=== PATIENT | male | born 1960 | race Caucasian/White ===

== ENCOUNTER 2016-10-30 10:33 | Emergency (ER) | payer OTHER ==
[~2016-10-30] VITALS: Ht 167.6 cm; Wt 96.6 kg
[2016-10-30 11:21] LABS: BASO % 0.5 % (0.0-1.0); EOS # 0.2 K/mm3 (0.0-0.50); EOS % 3.5 % (0.0-3.0); LARGE UNSTAINED CELL # 0.1 K/mm3 (0.0-0.4); LARGE UNSTAINED CELL % 1.1 % (0.0-4.0); LYMPH # 0.9 K/mm3 (1.5-4.5); LYMPH % 11.4 % (24.0-44.0); MEAN CORPUSCULAR HEMOGLOBIN 31.2 pg (27.0-33.0); MONO # 0.4 K/mm3 (0.0-0.8); MONO % 5.6 % (0.0-5.0); NEUTROPHILS # 5.4 K/mm3 (1.8-7.7); NEUTROPHILS % 77.9 % (36.0-66.0); PLATELET COUNT, AUTOMATED 186 k/mm3 (150-450); WHITE BLOOD COUNT 6.9 K/mm3 (4.0-10.0)
[2016-10-30] MEDS ORDERED: ACETAMINOPHEN TAB 650MG DOSE (2X325MG) PO ONE (11:30)
[2016-10-30] MEDS ORDERED: CHLO125TA PO (11:34)
[2016-10-30] MEDS ORDERED: BETA10TA2 PO (11:34)
[2016-10-30] MEDS ORDERED: ASPI81TA7 PO (11:34)
[2016-10-30] MEDS ORDERED: AMLO10TA2 PO (11:34)
[2016-10-30] MEDS ORDERED: TELM1TAB2 PO (11:34)
[2016-10-30] MEDS ORDERED: LEXA1TAB2 PO (11:34)
[2016-10-30] MEDS ORDERED: CHLORTHALIDONE 12.5MG PER 1/2 TABLET PO ONE (11:45)
--- NOTE | 2016-10-30 12:00 | REP ---
CT Head without contrast HISTORY: Headache COMPARISON: 03/08/2013 Areas of decreased attenuation are present in the periventricular and subcortical white matter. This represents small-vessel ischemic disease. There is no intraparenchymal hemorrhage, acute infarct, mass or midline shift. The ventricular system and cortical sulci are dilated consistent with minimal volume loss. There is no extra cerebral collection. There is no fracture. The visualized sinuses are clear. IMPRESSION: 1. Small vessel ischemic disease. 2. Minimal volume loss. Signed by Ron Sherwood MD 10/30/2016 11:51 A
[2016-10-30 12:13] LABS: ALBUMIN 4.1 GM/DL (3.2-5.2); ALBUMIN/GLOBULIN RATIO 1.32 (1.00-1.93); ALKALINE PHOSPHATASE 101 U/L (45-117); ALT/SGPT 71 U/L (12-78); ANION GAP 7 MEQ/L (8-16); AST/SGOT 36 U/L (15-37); BILIRUBIN,DIRECT 0.2 MG/DL (0.0-0.2); BILIRUBIN,TOTAL 0.8 MG/DL (0.2-1.0); BLOOD UREA NITROGEN 12 MG/DL (7-18); CARBON DIOXIDE LEVEL 29 MEQ/L (21-32); CHLORIDE LEVEL 101 MEQ/L (98-107); CREATININE FOR GFR 1.18 MG/DL (0.70-1.30); FREE T4 0.95 NG/DL (0.76-1.46); GLOMERULAR FILTRATION RATE > 60.0 (>56); GLUCOSE, FASTING 113 MG/DL (70-105); POTASSIUM SERUM 3.9 MEQ/L (3.5-5.1); SODIUM LEVEL 137 MEQ/L (136-145); TOTAL PROTEIN 7.2 GM/DL (6.4-8.2)
--- NOTE | 2016-10-30 12:21 | REP ---
Portable chest, single PA view: Comparison is the PA and lateral chest of 06/30/2015. The lung bruno are clear. The cardiac size is normal. The delaney, mediastinum, and bony thorax are unremarkable. Impression: Negative portable chest. There is no interval change Signed by Armand Steinberg MD 10/30/2016 12:13 P
[2016-10-30 12:58] VITALS: BP 161/95
--- NOTE | 2016-10-31 08:17 | ECGEPIP ---
Stationary ECG Study [facility] - ED Test Date: 2016-10-30 Pat Name: SHARIFA RICE Department: Room: - Gender: M [employer]: sb : 1960 Requested By: Jeremiah Pierre Order Number: [id number] Reading MD: Elizabeth Castillo Measurements Intervals Cylinder Rate: 61 P: 34 WY: 177 QRS: -11 QRSD: 94 T: 73 QT: 394 QTc: 397 Interpretive Statements SINUS RHYTHM LEFT VENTRICULAR HYPERTROPHY AND ST-T CHANGE LESS PRONOUNCED ST CHANGES COMPARED 06/30/15 Electronically Signed On 10-31-2016 8:17:09 EDT by Elizabeth Castillo
== END 2016-10-30 13:21 | disposition home or self-care (01) ==
LOC: M ED 11:39
DX: I10 Essential (primary) hypertension (principal); R51 Headache; I67.9 Cerebrovascular disease, unspecified; Z79.82 Long term (current) use of aspirin; Z79.899 Other long term (current) drug therapy

== ENCOUNTER → 2018-01-02 | Outpatient (REF) | payer OTHER ==
[2018-01-08 00:08] LABS: ALDOSTERONE 7.5 ng/dL (0.0-30.0)
[2018-01-08 10:13] LABS: RENIN LEVEL 0.316 ng/mL/hr (0.167-5.380)
== END ==
LOC: M LAB REF 16:51
DX: E87.6 Hypokalemia (principal)

== ENCOUNTER → 2018-09-25 | Outpatient (REF) | payer OTHER ==
[~2018-09-25] MED LIST: AMLO10TA5 PO; ASPI1TAB15 PO; BETA10TA2 PO; CHLO125TA PO; LEXA1TAB2 PO; TELM1TAB37 PO
[2018-09-30 00:06] LABS: RENIN LEVEL 1.463 ng/mL/hr (0.167-5.380)
== END ==
LOC: M LAB REF 16:17
PROVIDERS: ATTEND Internal Medicine
DX: E87.6 Hypokalemia (principal)

== ENCOUNTER 2019-04-12 09:09 | Day surgery (SDC) | payer OTHER ==
[~2019-04-12] VITALS: Ht 167.6 cm; Wt 94.8 kg
[~2019-04-12 09:09] MED LIST changes: +ATOR1TAB21 PO; +NS 1,000 ML IV ONE; +SPIR50TA4 PO
[2019-04-12] MEDS ORDERED: LIDOCAINE 2% INJ 100 MG/5 ML SDV (FOR ANES.) As Ordered ONE (09:47)
[2019-04-12] MEDS ORDERED: PROPOFOL 200 MG/20 ML VIAL As Ordered ONE (09:47)
--- NOTE | 2019-04-12 10:36 | ROOR ---
Patient Name: Carrillo Garcia Procedure Date: 04/12/2019 9:57 AM Date of : 1960 Age: 58 Room: [facility] Gender: Male Note Status: Finalized Procedure: Total Colonoscopy to Cecum + Cold Snare Polypectomy + Hemoclips Indications: Screening for colorectal malignant neoplasm Providers: Samuel Mederos MD Referring MD: Rupal Bryant DO Requesting Provider: Medicines: Monitored Anesthesia Care Complications: No immediate complications. Procedure: Pre-Anesthesia Assessment: - The heart rate, respiratory rate, oxygen saturations, blood pressure, adequacy of pulmonary ventilation, and response to care were monitored throughout the procedure. The Colonoscope was introduced through the anus and advanced to the cecum, identified by appendiceal orifice and ileocecal valve. The colonoscopy was performed without difficulty. The patient tolerated the procedure well. The quality of the bowel preparation was excellent. Findings: The perianal and digital rectal examinations were normal. Non-bleeding internal hemorrhoids were found during retroflexion. The hemorrhoids were small and Grade I (internal hemorrhoids that do not prolapse). Multiple small and large-mouthed diverticula were found in the recto-sigmoid colon, sigmoid colon and descending colon. A small polyp was found in the transverse colon. The polyp was sessile. The polyp was removed with a cold snare. Resection and retrieval were complete. A large polyp was found in the cecum. The polyp was sessile. The polyp was removed with a cold snare. Resection and retrieval were complete. To prevent bleeding after the polypectomy, two hemostatic clips were successfully placed (MR conditional). There was no bleeding at the end of the procedure. A diminutive polyp was found in the ascending colon. The polyp was sessile. The polyp was removed with a jumbo cold forceps. Resection and retrieval were complete. The exam was otherwise without abnormality on direct and retroflexion views. Impression: - Non-bleeding internal hemorrhoids. - Diverticulosis in the recto-sigmoid colon, in the sigmoid colon and in the descending colon. - One small polyp in the transverse colon, removed with a cold snare. Resected and retrieved. - One large polyp in the cecum, removed with a cold snare. Resected and retrieved. Clips (MR conditional) were placed. - One diminutive polyp in the ascending colon, removed with a jumbo cold forceps. Resected and retrieved. - The examination was otherwise normal on direct and retroflexion views. - The exam was otherwise normal to the cecum. Recommendation: - Patient has a contact number available for emergencies. The signs and symptoms of potential delayed complications were discussed with the patient. Return to normal activities tomorrow. Written discharge instructions were provided to the patient. - High fiber diet. - Discharge patient to home. - Continue present medications. - Await pathology results. - Telephone GI clinic for pathology results in 1 week. - Return to referring physician. - Repeat colonoscopy in 3 years for surveillance based on pathology results. - The findings and recommendations were discussed with the patient's family. Samuel Mederos MD Samuel Mederos MD 04/12/2019 10:36:45 AM Electronically signed by Smauel Mederos MD Number of Addenda: 0 Note Initiated On: 04/12/2019 9:57 AM Estimated Blood Loss: Estimated blood loss: none.
[2019-04-12 10:50] VITALS: BP 141/86
== END 2019-04-12 11:00 | disposition home or self-care (01) ==
LOC: M OPP 09:09
PROVIDERS: ATTEND Internal Medicine Gastroenterology
DX: Z12.11 Encounter for screening for malignant neoplasm of colon (principal); K64.0 First degree hemorrhoids; D12.3 Benign neoplasm of transverse colon; D12.0 Benign neoplasm of cecum; D12.2 Benign neoplasm of ascending colon; K57.30 Diverticulosis of large intestine without perforation or abscess without bleeding; F17.220 Nicotine dependence, chewing tobacco, uncomplicated; Z79.899 Other long term (current) drug therapy

== ENCOUNTER → 2021-01-22 | Outpatient (CLI) | payer OTHER ==
[~2021-01-22] MED LIST changes: -AMLO10TA5 PO; +AMLO1TAB25 PO; +ASPI-546 PO; -ASPI1TAB15 PO; -NS 1,000 ML IV ONE
--- NOTE | 2021-01-24 04:40 | REP ---
INDICATION: LEFT HIP AND FEMUR PAIN WITH ROM COMPARISON: None. TECHNIQUE: AP and frog-lateral views of the left hip FINDINGS: Significant advanced presumed osteoarthritic degenerative changes include periarticular heterogeneity, subchondral cystic changes, complete joint space obliteration and associated flattening/remodeling of the femoral head and acetabulum. No evidence for acute fracture. IMPRESSION: Significant advanced osteoarthritic degenerative changes. <Electronically signed by Terrance Lazar > 01/24/21 [id number]
--- NOTE | 2021-01-24 04:56 | REP ---
INDICATION: LEFT HIP AND FEMUR PAIN WITH ROM COMPARISON: None. TECHNIQUE: AP and frog-lateral views of the left femur. FINDINGS: Visualized portions of the femur from the mid shaft to the knee appear age-appropriate and without evidence for acute or healed injury. Knee joint is relatively intact and normal. IMPRESSION: Age-appropriate visualized portions of the femur. <Electronically signed by Terrance Lazar > 01/24/21 0453
== END ==
LOC: M RAD 14:12
PROVIDERS: ATTEND Internal Medicine
DX: M16.12 Unilateral primary osteoarthritis, left hip (principal)

== ENCOUNTER 2021-04-23 08:25 | Outpatient (RCR) | payer OTHER | END 2021-04-24 | LOC: M PT 08:25 | PROVIDERS: ATTEND Orthopaedic Surgery | DX: M25.552 Pain in left hip (principal) ==

== ENCOUNTER 2021-05-24 08:30 | Outpatient (RCR) | payer OTHER | END 2021-05-25 | LOC: M PT 08:30 | PROVIDERS: ATTEND Orthopaedic Surgery | DX: Z96.642 Presence of left artificial hip joint (principal) ==

== ENCOUNTER 2021-06-19 08:27 | Outpatient (RCR) | payer OTHER | END 2021-06-25 | LOC: M PT 08:27 | PROVIDERS: ATTEND Orthopaedic Surgery | DX: Z96.642 Presence of left artificial hip joint (principal) ==

== ENCOUNTER 2022-04-16 12:32 | Outpatient (RCR) | payer OTHER | END 2022-04-24 | LOC: M PT 12:32 | PROVIDERS: ATTEND Physician Assistant Surgical | DX: M54.31 Sciatica, right side (principal) ==

== ENCOUNTER 2022-05-22 07:00 | Outpatient (RCR) | payer OTHER | END 2022-05-25 | LOC: M PT 07:00 | PROVIDERS: ATTEND Physician Assistant Surgical | DX: M54.31 Sciatica, right side (principal) ==

== ENCOUNTER 2022-11-13 08:54 | Day surgery (SDC) | payer OTHER ==
[~2022-11-13] VITALS: Ht 167.6 cm; Wt 93.0 kg
[~2022-11-13 08:54] MED LIST changes: +GABA-282 PO; +NS 1,000 ML IV ONE
[2022-11-13] MEDS ORDERED: propofoL 200 MG/20 ML VIAL As Ordered ONE (09:57)
[2022-11-13] MEDS ORDERED: LIDOCAINE 2% 100MG/5ML SDV (FOR ANES.) As Ordered ONE (09:57)
[2022-11-13 11:13] VITALS: TEMP 96.9
[2022-11-13 11:28] VITALS: BP 139/86; O2SAT 96
== END 2022-11-13 11:34 | disposition home or self-care (01) ==
LOC: M SDC 08:54
PROVIDERS: ATTEND Internal Medicine Gastroenterology
DX: K64.0 First degree hemorrhoids (principal); K57.30 Diverticulosis of large intestine without perforation or abscess without bleeding; D12.6 Benign neoplasm of colon, unspecified; I10 Essential (primary) hypertension; F17.220 Nicotine dependence, chewing tobacco, uncomplicated; Z79.899 Other long term (current) drug therapy

== ENCOUNTER → 2025-03-29 | Outpatient (CLI) | payer OTHER ==
[~2025-03-29] MED LIST changes: +GABA-1172 PO; -GABA-282 PO; -NS 1,000 ML IV ONE
== END ==
LOC: M PLAIMG 09:48
PROVIDERS: ATTEND Internal Medicine
DX: I35.0 Nonrheumatic aortic (valve) stenosis (principal)